=== PATIENT | male | born 1990 | race American Indian/Alaskan Native ===

== ENCOUNTER 2017-08-16 01:04 | Emergency (ER) | payer MEDICAID, OTHER ==
[2017-08-16 01:17] VITALS: BP 130/72; PULSE 84; O2SAT 99
--- NOTE | 2017-08-16 02:01 | ED PDOC ---
HPI: General Adult Time Seen by Provider: 08/16/17 01:17 Chief Complaint (Nursing): Medical Clearance History Per: Patient History/Exam Limitations: no limitations Onset/Duration Of Symptoms: Days Current Symptoms Are (Timing): Still Present Additional Complaint(s): Hx of HIV presenting with "pains" to body, states he has not seen his primary care doctor in years and does not take any of his HIV medications, asking to get his "blood checked". Denies suicidal or homidical ideation. Of note, patient was sleeping soundly prior to evaluation, required loud verbal interaction to wake him up. Past Medical History Reviewed: Historical Data, Nursing Documentation, Vital Signs Vital Signs: Last Vital Signs Temp 98.0 F 08/16/17 01:10 Pulse 84 08/16/17 01:10 Resp 17 08/16/17 01:10 BP 130/72 08/16/17 01:10 Pulse Ox 99 08/16/17 01:10 - Medical History PMH: HIV Denies: Chronic Kidney Disease, Sexually Transmitted Disease (denies) - Family History Family History: States: Unknown Family Hx - Immunization History Hx Tetanus Toxoid Vaccination: No Hx Influenza Vaccination: No Hx Pneumococcal Vaccination: No - Home Medications Home Medications: Ambulatory Orders Medication Instructions Recorded Fluconazole [Diflucan] 200 mg PO DAILY #20 tab 01/13/17 Ibuprofen [Motrin] 600 mg PO TID #21 tab 01/13/17 - Allergies Allergies/Adverse Reactions: Allergies Allergy/AdvReac Type Severity Reaction Status Date / Time No Known Allergies Allergy Verified 01/13/17 13:28 Review of Systems ROS Statement: Except As Marked, All Systems Reviewed And Found Negative Physical Exam - Reviewed Nursing Documentation Reviewed: Yes Vital Signs Reviewed: Yes - Physical Exam Appears: Positive for: Well, Non-toxic, No Acute Distress Head Exam: Positive for: ATRAUMATIC, NORMAL INSPECTION, NORMOCEPHALIC Skin: Positive for: Normal Color, Warm, DRY Eye Exam: Positive for: EOMI, Normal appearance, PERRL ENT: Positive for: Normal ENT Inspection, Pharynx Is (normal, no thrush) Neck: Positive for: Normal, Painless ROM Cardiovascular/Chest: Positive for: Regular Rate, Rhythm Respiratory: Positive for: CNT, Normal Breath Sounds Gastrointestinal/Abdominal: Positive for: Normal Exam, Soft Back: Positive for: Normal Inspection Extremity: Positive for: Normal ROM Neurologic/Psych: Positive for: Alert, Oriented - ECG O2 Sat by Pulse Oximetry: 99 Pulse Ox Interpretation: Normal Medical Decision Making Medical Decision Making: Patient brought to ER for med clearance prior to incarceration -explained to patient that we do not test CD4/VL as routine ER testing and advised that he needs to followup with his PMD -patient offered motrin for body pains, refused -patient does not have signs of overt AIDS, no thrush, no cachexia -patient is stable, suitable for outpatient followup Disposition - Clinical Impression Clinical Impression: Total body pain - Disposition Referrals: [facility] [Outside] Disposition: Routine/Home Disposition Time: 02:05 Condition: STABLE Additional Instructions: Patient is medically and psychiatrically cleared for incarceration. Instructions: General (DC) Forms: [employer] ([place])
[2017-08-16 02:37] VITALS: RESP 16; TEMP 98
== END 2017-08-16 02:10 | disposition home or self-care (01) ==
LOC: H.ER 01:04
DX: M79.1 Myalgia (principal); B20 Human immunodeficiency virus [HIV] disease; L65.9 Nonscarring hair loss, unspecified